=== PATIENT | male | born 1970 | race African-American/Black ===

== ENCOUNTER 2017-06-07 13:23 | Emergency (ER) | payer SELFPAY ==
[~2017-06-07] VITALS: Ht 182.9 cm; Wt 103.0 kg
[~2017-06-07 13:23] MED LIST: AMOXICILLIN500 M1 PO; COATED ASPIRIN325 M1 PO; FLONASE 0.05% N16 G1
== END 2017-06-07 14:50 | disposition home or self-care (01) ==
LOC: CFTX 13:23 → CED 13:23 → CFTX 14:44
DX: J02.9 Acute pharyngitis, unspecified (principal); I10 Essential (primary) hypertension; Z91.19 Patient's noncompliance with other medical treatment and regimen; I48.91 Unspecified atrial fibrillation
CPT/HCPCS: 87651; 99283